=== PATIENT | female | born 1965 | race Caucasian/White ===

== ENCOUNTER → 2016-05-20 | Outpatient (CLI) | payer OTHER ==
[~2016-05-20] MED LIST: ACET-1256 PO; CHOL2000 PO; CYCL10TA6 PO; ESCI10TA17 PO; IBUP-1428 PO; LORA-741 PO; RIZA10TA19 PO; TOPI100T20 PO
--- NOTE | 2016-05-20 16:18 | MAMMOGRAPHY REPORT ---
BILATERAL DIGITAL SCREENING MAMMOGRAM TOMOSYNTHESIS WITH CAD: 05/20/2016 CLINICAL HISTORY: Routine screening. Patient has no complaints. TECHNIQUE: Breast tomosynthesis in addition to standard 2D mammography was performed. Current study was also evaluated with a Computer Aided Detection (CAD) system. COMPARISON: Comparison is made to exams dated: 12/05/2013 mammogram, 04/09/2015 mammogram, 12/01/2012 mammogram, 11/19/2011 mammogram, 11/12/2010 mammogram, and 11/05/2009 mammogram - [facility]. BREAST COMPOSITION: There are scattered areas of fibroglandular density in both breasts. FINDINGS: There is a regional asymmetry in the upper outer quadrant of the right breast, that appear s similar on all available prior mammograms dating back to at least 08/18/2006, most likely represen ting the patient's baseline. There is architectural distortion within the asymmetry on the right ML O view, likely representing an area of prior surgery. This appearance is also similar on all availa ble prior mammograms. No suspicious mass, unexpected architectural distortion or cluster of microca lcifications is seen. IMPRESSION: ACR BI-RADS CATEGORY 1: NEGATIVE There is no mammographic evidence of malignancy. A 1 year screening mammogram is recommended. The p atient will receive written notification of the results. Approximately 10% of breast cancers are not detected with mammography. A negative mammographic repor t should not delay biopsy if a clinically suggestive mass is present. Chela Crawford M.D. ay/:05/20/2016 16:02:25 Route Sales Associate: Myrna STEWART(Pierce)(Neil), [facility] letter sent: Normal 1/2 BI-RADS Code: ACR BI-RADS Category 1: Negative
== END | disposition home or self-care (01) ==
LOC: C.MAMM 14:36
PROVIDERS: ATTEND Family Medicine
DX: Z12.31 Encounter for screening mammogram for malignant neoplasm of breast (principal)

== ENCOUNTER → 2016-09-23 | Outpatient (CLI) | payer OTHER ==
--- NOTE | 2016-09-23 11:55 | DIAGNOSTIC IMAGING REPORT ---
LEFT SHOULDER MIN 2 VIEWS ROUTINE CLINICAL HISTORY: Left shoulder pain. COMPARISON: None FINDINGS: Alignment of left shoulder is anatomic. There is moderate AC joint arthrosis and mild glenohumeral joint arthrosis. There is no fracture or suspicious lesion. IMPRESSION: 1. Moderate osteoarthritis of the left acromioclavicular joint and mild arthritis of the left glenohumeral joint. 2. No fracture. Electronically signed by: Seth Paez M.D. 09/23/2016 11:54 AM Dictated Date/Time: 09/23/2016 11:53 AM
== END | disposition home or self-care (01) ==
LOC: C.RADBC 11:41
PROVIDERS: ATTEND Physician Assistant Medical
DX: M25.512 Pain in left shoulder (principal)

== ENCOUNTER → 2016-10-24 | Outpatient (CLI) | payer OTHER ==
--- NOTE | 2016-10-24 09:18 | DIAGNOSTIC IMAGING REPORT ---
LEFT SHOULDER MRI HISTORY: LEFT SHOULDER PAIN TECHNIQUE: Multiplanar multisequence MRI of the left shoulder was performed without contrast. COMPARISON STUDY: Left shoulder 09/23/2016. FINDINGS: AC joint: Moderate AC joint arthrosis demonstrated by joint space narrowing, small marginal osteophytes, and mild subchondral edema. Rotator cuff: The subscapularis, teres minor, and infraspinatus tendons are intact. No fluid within the subacromial/subdeltoid bursa. There is a small partial tear along the undersurface of the supraspinatus tendon which measures 5 mm in length. There is also mild increased T2 signal within the mid to distal supraspinatus tendon consistent with a mild tendinopathy. Labrum: Question of increased signal at the base of superior labrum favors cartilage undercutting. No definite evidence for labral tear. Biceps tendon: Intact Bones: No fracture or dislocation. Cartilage: Intact Miscellaneous: No joint effusion. IMPRESSION: 1. Small partial undersurface tear at the mid supraspinatus tendon with associated mild tendinopathy. 2. Moderate AC joint osteoarthritis. Electronically signed by: Kwame Marroquin M.D. 10/24/2016 9:17 AM Dictated Date/Time: 10/24/2016 9:11 AM
== END | disposition home or self-care (01) ==
LOC: C.MRIBC 08:31
PROVIDERS: ATTEND Orthopaedic Surgery
DX: M25.512 Pain in left shoulder (principal)

== ENCOUNTER → 2016-10-27 | Outpatient (CLI) | payer OTHER ==
[2016-10-27 12:08] LABS: BASO % 0.4 %; BASO ABS # 0.04 K/uL (0-0.2); COMPLETE YES; EOS % 2.4 %; HEMATOCRIT 42.8 % (37-47); IG% 0.2 %; LYMPH % 26.4 %; LYMPH ABS # 2.43 K/uL (1.2-3.4); MEAN CELL VOLUME 94.7 fL (80-100); MEAN CORPUSCULAR HEMOGLOBIN 32.1 pg (25-34); MEAN CORPUSCULAR HGB CONC 33.9 g/dl (32-36); MEAN PLATELET VOLUME 11.3 fL (7.4-10.4); MONO % 7.3 %; NEUT % 63.3 %; PLATELET COUNT 232 K/uL (130-400); RED BLOOD COUNT 4.52 M/uL (4.2-5.4); WHITE BLOOD COUNT 9.22 K/uL (4.8-10.8)
[2016-10-27 12:49] LABS: BLOOD UREA NITROGEN 15 mg/dl (7-18); BUN/CREATININE RATIO 24.2 (10-20); CALCIUM 8.9 mg/dl (8.5-10.1); CARBON DIOXIDE 21 mmol/L (21-32); CHLORIDE 114 mmol/L (98-107); CREATININE 0.64 mg/dl (0.60-1.20); GLUCOSE 75 mg/dl (70-99); POTASSIUM 3.4 mmol/L (3.5-5.1); SODIUM 143 mmol/L (136-145)
== END | disposition home or self-care (01) ==
LOC: C.CPL 10:44
PROVIDERS: ATTEND Orthopaedic Surgery
DX: Z01.818 Encounter for other preprocedural examination (principal); M75.02 Adhesive capsulitis of left shoulder

== ENCOUNTER → 2016-11-20 | Day surgery (SDC) | payer OTHER ==
[2016-10-31 08:28] VITALS: BMI 23.0
[2016-10-31 08:36] VITALS: Ht 157.5 cm; Wt 58.0 kg
[~2016-11-20] VITALS: Ht 157.5 cm; Wt 58.0 kg
[~2016-11-20] MED LIST changes: +ATROPINE SULFATE 0.1 MG/ML 5ML SYR IV PRN; +BUPIVACAINE/EPINEPHRINE 0.25% 1:200,000 30 ML VIAL ONE; +CEFAZOLIN 2000 MG/60 ML D5W IV SCH; +DEXAMETHASONE SOD INJ 4 MG/ML VIAL ONE; +EpHEDrine SULFATE INJ 50 MG/ML AMP IV PRN; +EpINEphrine INJ 1MG/ML AMP 1 MG/ML AMP ONE; +FENTANYL CITRATE INJ 50 MCG/1 ML 2 ML VIAL IV PRN; +FENTANYL CITRATE INJ 50 MCG/1 ML 2 ML VIAL ONE; +HYDROmorphone INJ 1 MG/ML SYR IV PRN; +LACTATED RINGER'S 1000ML 1,000 ML IV SCH; +LIDOCAINE HCL 2% 2 ML VIAL (20MG/ML) ONE; +METHYLPREDNISOLONE ACETATE 80 MG/ML VIAL ONE; +MIDAZOLAM HCL 1 MG/ML 2ML VIAL ONE; +ONDANSETRON INJ 2 MG/ML 2 ML VIAL IV PRN; +ONDANSETRON INJ 2 MG/ML 2 ML VIAL ONE; +OXYCODONE/ACETAMINOPHEN 5-325 TAB PO PRN; +PROPOFOL IV EMULSION 10 MG/ML 20 ML VIAL IV ONE; +ROPIVACAINE 0.5% 5 MG/ML 30 ML VIAL ONE; +SODIUM CHLORIDE 0.9% 1000ML 1,000 ML IV SCH
--- NOTE | 2016-11-20 09:54 | History & Physical Bridge - SC ---
H&P Re-Evaluation Bridge Note: I have examined the patient, reviewed the History & Physical and in the interval since the performance of the History & Physical I have noted the following changes of clinical significance: No changes noted
--- NOTE | 2016-11-20 10:55 | Discharge Instructions-SurgCtr ---
Discharge Instructions Date of Service Nov 20, 2016. Visit Reason for Visit: Left Shoulder Adhesive Capsulitis, Pain Discharge Discharge Diagnosis / Problem: SAME ABOVE Discharge Goals Goal(s): Decrease discomfort, Improve function Medications Stopped Medications Name(s): Ibuprofen. Last dose 11/16/16. Activity Recommendations Activity Limitations: as noted below Lifting Limitations: gradually increase as tolerated Exercise/Sports Limitations: gradually increase as tolerated Shower/Bathe: tomorrow Anesthesia . Post Anesthesia Instructions: If you have had General Anesthesia or IV Sedation: * Do not drive today. * Resume driving when surgeon permits. * Do not make important decisions or sign legal documents today. * Call surgeon for: 1. Temperature elevations greater than 101 degrees F. 2. Uncontrollable pain. 3. Excessive bleeding. 4. Persistent nausea and vomiting. 5. Medication intolerance (nausea, vomiting or rash). * For nausea and vomiting use only clear liquids such as: tea, soda, bouillon until nausea subsides, then gradually increase diet as tolerated. * If you have any concerns or questions, call your surgeon's office. If physician is unavailable and it is an emergency, call 911 or go to the nearest emergency room. . Instructions / Follow-Up Instructions / Follow-Up MEDICATIONS: * Resume previous medications unless instructed otherwise by your surgeon. * Always take pain medication on a full stomach or with food to avoid upset stomach. * Do not drink alcohol or drive while taking narcotics. * Ibuprofen or Tylenol may be taken if narcotic not needed. SPECIAL CARE INSTRUCTIONS: __ None _X_ Keep extremity elevated and iced x 48 hours; apply ice 20-30 minutes 8-10 times/day. May remove at night. _X_ Sling __24 hrs/day __ Remove at night __ Shoulder Immobilizer __ 24 hrs/day __ Remove at night _X_ Dressing __ Maintain until seen in office, may shower with plastic over site _X_ Remove dressings in 24-48 hours and then may shower _X_ Cover incisions with band-aids after showering __ Do not remove steri-strips WEAR SLING FOR 24-48 HOURS FOR COMFORT THEN REMOVE Call physician if chills or temperature rises above 102 degrees or pain unrelieved by prescribed pain medications at . . Diet Recommendations Home Diet: resume previous diet Procedures Procedures Performed: Left Shoulder Arthroscopic Capsular Release Pending Studies Studies pending at discharge: no Medical Emergencies . Who to Call and When: Medical Emergencies: If at any time you feel your situation is an emergency, please call 911 immediately. . Non-Emergent Contact Non-Emergency issues call your: Primary Care Provider . . "Provider Documentation" section prepared by Omid Wayne. .
[2016-11-20 11:44] VITALS: TEMP 36.2
--- NOTE | 2016-11-20 12:04 | Anesthesia Progress Nt - [facility] ---
Anesthesia Post Op Note Date & Time Nov 20, 2016 at 12:04 Vital Signs Pain Intensity: 0 Vital Signs Past 12 Hours Date Time Temp Pulse Resp B/P (MAP) Pulse Ox O2 Delivery O2 Flow Rate FiO2 11/20/16 11:44 36.2 65 162/83 (109) 99 Room Air 11/20/16 11:31 134/90 11/20/16 11:31 36.2 76 18 134/90 99 Room Air 11/20/16 11:29 78 19 100 11/20/16 11:29 80 19 11/20/16 11:26 133/81 11/20/16 11:24 83 18 99 11/20/16 11:24 81 18 11/20/16 11:21 119/80 11/20/16 11:19 73 14 11/20/16 11:19 73 14 100 11/20/16 11:16 141/86 11/20/16 11:14 72 14 11/20/16 11:14 72 14 100 11/20/16 11:11 145/82 11/20/16 11:09 72 14 11/20/16 11:09 72 14 100 11/20/16 11:06 129/76 11/20/16 11:04 74 13 100 11/20/16 11:04 72 13 11/20/16 11:01 130/75 11/20/16 10:59 73 13 100 11/20/16 10:59 73 13 11/20/16 10:56 127/75 11/20/16 10:54 74 21 11/20/16 10:54 76 21 100 11/20/16 10:51 119/74 11/20/16 10:50 36.1 70 12 114/74 99 Mask 6 11/20/16 09:58 74 21 100 11/20/16 09:58 74 21 11/20/16 09:56 124/79 11/20/16 09:53 74 17 100 11/20/16 09:53 74 17 11/20/16 09:51 119/80 11/20/16 09:48 64 23 100 11/20/16 09:48 65 23 11/20/16 09:47 67 25 100 11/20/16 09:47 67 25 11/20/16 09:46 139/89 11/20/16 09:42 70 21 99 11/20/16 09:42 70 21 11/20/16 09:41 131/83 11/20/16 09:40 117/83 11/20/16 09:37 60 17 97 11/20/16 09:37 61 17 11/20/16 09:36 75 15 97 11/20/16 09:36 72 15 11/20/16 09:31 60 18 97 11/20/16 09:31 60 18 11/20/16 09:26 70 21 11/20/16 09:26 69 21 96 11/20/16 09:21 69 19 96 11/20/16 09:21 68 19 11/20/16 09:16 77 16 96 11/20/16 09:16 75 16 11/20/16 09:11 71 20 11/20/16 09:11 71 20 96 11/20/16 09:06 69 16 11/20/16 09:06 68 16 96 11/20/16 07:46 36.5 66 16 117/73 (88) 97 Room Air Notes Mental Status: alert / awake / arousable, participated in evaluation Pt Amnestic to Procedure: Yes Nausea / Vomiting: adequately controlled Pain: adequately controlled Airway Patency, RR, SpO2: stable & adequate BP & HR: stable & adequate Hydration State: stable & adequate Anesthetic Complications: no major complications apparent
[2016-11-20 12:11] VITALS: BP 147/78; PULSE 68; O2SAT 98
--- NOTE | 2016-11-20 14:34 | [facility] Post Operative Brief Note ---
Immediate Operative Summary Operative Date Nov 20, 2016. Pre-Operative Diagnosis Left Shoulder Adhesive Capsulitis Post-Operative Diagnosis Same Procedure(s) Performed Left Shoulder Arthroscopic Capsular Release Surgeon Dr Kwan Acid Plant Helper Surgeon(s) None Estimated Blood Loss Trace Findings as above Specimens None Complication(s) None Disposition Recovery Room / PACU
--- NOTE | 2016-11-20 15:13 | OPERATIVE REPORT ---
DATE OF OPERATION: 11/20/2016 PREOPERATIVE DIAGNOSIS: Adhesive capsulitis of the left shoulder. POSTOPERATIVE DIAGNOSIS: Same. PROCEDURE: Left shoulder diagnostic arthroscopy with extensive debridement, lysis of adhesions and manipulation under anesthesia. SURGEON: Dr. Omid Kwan. MICROFILMING DOCUMENT PREPARER: Omid Wayne PA-C whose assistance was necessary for positioning the arm and helping with instrumentation. ANESTHESIA: General with a left interscalene nerve block. COMPLICATIONS: None. CONDITION: Stable to PACU. INDICATIONS: Cat is a pleasant 51-year-old female who presented to my office with chronic left shoulder pain and tightness. MRI and clinical examination were diagnostic for adhesive capsulitis of the left shoulder. After failing conservative treatment, she elected to undergo arthroscopic capsular release. OPERATION AND FINDINGS: On 11/20/2016 she arrived at [facility] for the above procedure. She was seen in the preoperative holding area and the operative extremity was identified and signed. She was given a preoperative antibiotic and a left interscalene nerve block. She was taken back to the operating room, laid on the table in supine position and put under general anesthesia. She was then put into the beachchair position. The left shoulder was prepped and draped in sterile fashion. Time-out was done and the patient and operative extremity was properly identified. On preoperative physical examination, she had about 70 degrees of abduction and 40 degrees of external rotation. A gentle manipulation was done under anesthesia to facilitate insertion of the scope. The scope was then placed in the posterior portal. Diagnostic arthroscopy showed significant redness and tightness of the rotator interval at middle and anterior inferior glenohumeral ligaments. An anterior portal was made. A shaver and ablator were used to do a lysis of adhesions of the superior, middle and anterior inferior glenohumeral ligaments. A shaver was used to do an extensive debridement of the intraarticular structures and to completely debride the edges of the ligaments back to stable margins. This is to ensure that they do not readhere. Time out also spent completely opening up the rotator interval and cleaning up the subcoracoid space. Hemostasis was controlled with electrocautery. The rotator cuff was intact and the biceps tendon was intact. Arthroscopic instruments were removed from the shoulder. Final manipulation was done under anesthesia. I was able to get full range of motion of her shoulder. The portal sites were then closed with 3-0 nylon. The intra-articular joint was then injected with 80 mg of Depo-Medrol. She was then placed in a soft dressing and regular arm sling. She was then extubated, transferred to a [facility] and taken to the postanesthesia care unit in stable condition. She tolerated the procedure well. I attest to the content of the Intraoperative Record and any orders documented therein. Any exception s are noted below.
== END | disposition home or self-care (01) ==
LOC: X.SURG 07:36
PROVIDERS: ATTEND Orthopaedic Surgery
DX: M75.02 Adhesive capsulitis of left shoulder (principal); F32.9 Major depressive disorder, single episode, unspecified; I73.9 Peripheral vascular disease, unspecified; I71.4 Abdominal aortic aneurysm, without rupture; Z90.49 Acquired absence of other specified parts of digestive tract

== ENCOUNTER → 2017-06-22 | Outpatient (CLI) | payer OTHER ==
[~2017-06-22] MED LIST changes: -ATROPINE SULFATE 0.1 MG/ML 5ML SYR IV PRN; -BUPIVACAINE/EPINEPHRINE 0.25% 1:200,000 30 ML VIAL ONE; -CEFAZOLIN 2000 MG/60 ML D5W IV SCH; -DEXAMETHASONE SOD INJ 4 MG/ML VIAL ONE; -EpHEDrine SULFATE INJ 50 MG/ML AMP IV PRN; -EpINEphrine INJ 1MG/ML AMP 1 MG/ML AMP ONE; -FENTANYL CITRATE INJ 50 MCG/1 ML 2 ML VIAL IV PRN; -FENTANYL CITRATE INJ 50 MCG/1 ML 2 ML VIAL ONE; -HYDROmorphone INJ 1 MG/ML SYR IV PRN; -LACTATED RINGER'S 1000ML 1,000 ML IV SCH; -LIDOCAINE HCL 2% 2 ML VIAL (20MG/ML) ONE; -METHYLPREDNISOLONE ACETATE 80 MG/ML VIAL ONE; -MIDAZOLAM HCL 1 MG/ML 2ML VIAL ONE; -ONDANSETRON INJ 2 MG/ML 2 ML VIAL IV PRN; -ONDANSETRON INJ 2 MG/ML 2 ML VIAL ONE; -OXYCODONE/ACETAMINOPHEN 5-325 TAB PO PRN; -PROPOFOL IV EMULSION 10 MG/ML 20 ML VIAL IV ONE; -ROPIVACAINE 0.5% 5 MG/ML 30 ML VIAL ONE; -SODIUM CHLORIDE 0.9% 1000ML 1,000 ML IV SCH
[2017-06-22 11:57] LABS: BASO % 0.5 %; BASO ABS # 0.05 K/uL (0-0.2); EOS % 1.6 %; EOS ABS # 0.17 K/uL (0-0.5); HEMATOCRIT 38.5 % (37-47); IG# 0.02 K/uL (0.00-0.02); LYMPH % 22.5 %; LYMPH ABS # 2.35 K/uL (1.2-3.4); MEAN CELL VOLUME 95.5 fL (80-100); MEAN CORPUSCULAR HEMOGLOBIN 32.3 pg (25-34); MEAN CORPUSCULAR HGB CONC 33.8 g/dl (32-36); MEAN PLATELET VOLUME 11.3 fL (7.4-10.4); MONO % 7.9 %; MONO ABS # 0.83 K/uL (0.11-0.59); NEUT % 67.3 %; NEUT ABS # 7.03 K/uL (1.4-6.5); PLATELET COUNT 225 K/uL (130-400); RED CELL DISTRIBUTION WIDTH CV 13.1 % (11.5-14.5); RED CELL DISTRIBUTION WIDTH SD 45.8 fL (36.4-46.3); WHITE BLOOD COUNT 10.45 K/uL (4.8-10.8)
[2017-06-22 12:10] LABS: ALBUMIN 3.4 gm/dl (3.4-5.0); ALT/SGPT 36 U/L (12-78); AST/SGOT 35 U/L (15-37); BLOOD UREA NITROGEN 12 mg/dl (7-18); CALCIUM 8.5 mg/dl (8.5-10.1); CARBON DIOXIDE 22 mmol/L (21-32); CHOLESTEROL 213 mg/dl (0-200); CREATININE 0.67 mg/dl (0.60-1.20); GLUCOSE 78 mg/dl (70-99); POTASSIUM 3.2 mmol/L (3.5-5.1); SODIUM 143 mmol/L (136-145)
[2017-06-22 12:18] LABS: ALKALINE PHOSPHATASE 95 U/L (45-117); LDL CHOLESTEROL (DIRECT) 146 mg/dl; PHOSPHORUS 2.7 mg/dl (2.5-4.9); TOTAL PROTEIN 7.2 gm/dl (6.4-8.2)
== END | disposition home or self-care (01) ==
LOC: C.LAB1850 10:02
PROVIDERS: ATTEND Family Medicine
DX: E78.2 Mixed hyperlipidemia (principal); R60.9 Edema, unspecified

== ENCOUNTER → 2017-06-22 | Outpatient (CLI) | payer OTHER ==
--- NOTE | 2017-06-23 07:55 | MAMMOGRAPHY REPORT ---
BILATERAL DIGITAL SCREENING MAMMOGRAM TOMOSYNTHESIS WITH CAD: 06/22/2017 CLINICAL HISTORY: Routine screening. Patient has no complaints. TECHNIQUE: Breast tomosynthesis in addition to standard 2D mammography was performed. Current study was also evaluated with a Computer Aided Detection (CAD) system. COMPARISON: Comparison is made to exams dated: 05/20/2016 mammogram, 04/09/2015 mammogram, 12/05/2013 mammogram, 12/01/2012 mammogram, 11/19/2011 mammogram, and 11/12/2010 mammogram - [facility] enter. BREAST COMPOSITION: There are scattered areas of fibroglandular density in both breasts. FINDINGS: There is is evidence of prior surgery in the right breast, and stable focal asymmetry vers us regional asymmetry occupying the upper outer middle and posterior right breast. There are possibl e grouped microcalcifications in the upper outer middle one third of the left breast, for which addit ional spot magnification views are recommended. 2 possible subcentimeter masses in the upper outer a nterior left breast, for which additional targeted ultrasound and possible additional mammographic vi ews are recommended. No other suspicious mass, architectural distortion or cluster of microcalcifications is seen. IMPRESSION: ACR BI-RADS CATEGORY 0: INCOMPLETE EVALUATION: NEED ADDITIONAL IMAGING EVALUATION The 2 possible subcentimeter masses in the upper outer anterior left breast and possible microcalcifi cations in the left upper outer quadrant need additional imaging evaluation. The patient will be called to schedule an appointment. Approximately 10% of breast cancers are not detected with mammography. A negative mammographic report should not delay biopsy if a clinically suggestive mass is present. Chela Crawford M.D. ay/:06/22/2017 16:49:49 Security Trainer: Laure STEWART(Pierce)(Neil), [facility] letter sent: Addl Imaging 0 BI-RADS Code: ACR BI-RADS Category 0: Incomplete Evaluation: Need Additional Imaging Evaluation
== END | disposition home or self-care (01) ==
LOC: C.MAMM 09:43
PROVIDERS: ATTEND Family Medicine
DX: Z12.31 Encounter for screening mammogram for malignant neoplasm of breast (principal); R92.8 Other abnormal and inconclusive findings on diagnostic imaging of breast

== ENCOUNTER → 2017-06-29 | Outpatient (CLI) | payer OTHER ==
--- NOTE | 2017-06-29 15:42 | MAMMOGRAPHY REPORT ---
UNILATERAL LEFT DIGITAL DIAGNOSTIC MAMMOGRAM AND TARGETED LEFT ULTRASOUND: 06/29/2017 CLINICAL HISTORY: 52-year-old woman called back from screening mammography for 2 possible subcentimet er masses in the upper outer anterior left breast, and possible microcalcifications in the upper oute r middle one third of the left breast. Family history of breast cancer. TECHNIQUE: Spot magnification left CC and MLO views were obtained. COMPARISON: Comparison is made to exams dated: 06/22/2017 mammogram, 05/20/2016 mammogram, 04/09/2015 mammogram, 12/05/2013 mammogram, 12/01/2012 mammogram, and 11/19/2011 mammogram - [facility] enter. BREAST COMPOSITION: There are scattered areas of fibroglandular density in the left breast. FINDINGS: The spot magnification views of the left breast demonstrate 2-3 punctate microcalcificatio ns in the upper outer middle one third of the breast. No associated architectural distortion or obvi ous mass. When comparing to prior available mammograms the microcalcifications are increased in cons picuity. Although they most likely represent benign fibrocystic change, a short interval follow-up i s recommended to ensure stability in 6 months. Targeted ultrasound was performed in the upper outer anterior left breast. In the 12:00 periareolar left breast, there is a benign anechoic simple cyst measuring 5.4 x 4.8 x 5.2 mm. In the 1:00 periar eolar left breast, there is a parallel lobulated and circumscribed isoechoic solid-appearing mass dani suring 8.8 x 3.2 x 5.8 mm. Although this could represent a benign fibroadenoma, given the solid natu re, definitive characterization with an ultrasound-guided core needle biopsy is recommended. IMPRESSION: ACR BI-RADS CATEGORY 4: SUSPICIOUS, TARGETED ULTRASOUND ACR BI-RADS CATEGORY 4: SUSPICIO US 1. Left breast ultrasound-guided core biopsy is recommended for an indeterminate solid 8.8 mm mass in the 1:00 periareolar left breast. 2. A second possible mass in the upper outer anterior left breast corresponds to a benign anechoic s imple cyst on ultrasound, identified in the 12:00 periareolar axis. 3. There are 2-3 punctate microcalcifications in the upper outer middle one third of the left breast that are probably benign. However, given slight increased conspicuity to prior mammograms, a short interval follow-up left diagnostic mammogram including spot magnification views is recommended in 6 m [facility], pending benign pathology results from the left breast ultrasound-guided core biopsy. These results and recommendations were discussed with the patient at the time of the exam. She is te ntatively scheduled the left breast biopsy prior to leaving the department. Approximately 10% of breast cancers are not detected with mammography. A negative mammographic report should not delay biopsy if a clinically suggestive mass is present. Chela Crawford M.D. ay/:06/29/2017 09:16:01 Client Solutions Manager: Sanjay STEWART(R)(M), [facility] letter sent: Abnormal 4/5 BI-RADS Code: ACR BI-RADS Category 4: Suspicious Ultrasound BI-RADS: ACR BI-RADS Category 4: Suspici ous
== END | disposition home or self-care (01) ==
LOC: C.MAMM 08:44
PROVIDERS: ATTEND Family Medicine
DX: C50.912 Malignant neoplasm of unspecified site of left female breast (principal); N63.20 Unspecified lump in the left breast, unspecified quadrant; R92.0 Mammographic microcalcification found on diagnostic imaging of breast

== ENCOUNTER → 2017-07-10 | Outpatient (CLI) | payer OTHER ==
--- NOTE | 2017-07-13 13:56 | MAMMOGRAPHY REPORT ---
ASPIRATION LEFT BREAST: 07/10/2017 CLINICAL HISTORY: Left 1:00 periareolar breast mass. PATIENT CONSENT: The procedure and risks of ultrasound-guided cyst biopsy/aspiration were discussed i n full with the patient. Both oral and written consents were obtained. PROCEDURE DESCRIPTION: Preprocedural ultrasound demonstrate a persistent mass in the left 1:00 periar eolar breast. The mass is predominantly isoechoic but does have an anechoic cystic component. Given that the mass could represent a complicated cyst, the decision was made to attempt aspiration prior to biopsy. With ultrasound guidance, aseptic technique, and 1% lidocaine as a local anesthetic, the mass of concern in the left 1:00 periareolar breast was aspirated to completion. A small amount of b enign type of cloudy yellow/pink fluid was aspirated and sent to cytology in [facility] for analysis. D irect pressure was applied to the site immediately post procedure and hemostasis was achieved. The p atient tolerated the procedure without complication. COMPARISON: Comparison is made to exams dated: 06/29/2017 mammogram, 06/29/2017 ultrasound, 06/22/2017 ma mmogram, 05/20/2016 mammogram, 04/09/2015 mammogram, and 12/05/2013 mammogram - [facility] enter. IMPRESSION: ASPIRATION 1. Successful ultrasound-guided aspiration of the mass in the left 1:00 periareolar breast. Given t hat the mass completely aspirated, it is consistent with a cyst. [facility]. 2. Pending benign cytology results, recommend follow-up diagnostic mammograms of the left breast in 6 months to confirm stability of left breast calcifications that are probably benign. Shante Rice M.D. ah/:07/10/2017 13:42:31 Community Development Planner: Laure STEWART(Pierce)(M), [facility]
== END | disposition home or self-care (01) ==
LOC: C.MAMM 12:32
PROVIDERS: ATTEND Family Medicine
DX: N60.02 Solitary cyst of left breast (principal)

== ENCOUNTER 2023-07-22 10:44 | Inpatient (IN) ==
[2023-07-22 11:32] LABS: POC Urine Bilirubin Negative (Negative); POC Urine Blood Negative (Negative); POC Urine Glucose Normal (Normal); POC Urine Ketones Negative (Negative); POC Urine Leukocytes Negative (Negative); POC Urine Nitrite Negative (Negative); POC Urine Protein Negative (Negative); POC Urine Urobilinogen Normal (Normal); POC Urine pH 5 (4.5-7.5)
[2023-07-22 11:48] LABS: Basophils # (auto) 0.06 K/uL (0.00-0.20); Basophils % (auto) 0.6 %; Eosinophils # (auto) 0.16 K/uL (0.00-0.50); Eosinophils % (auto) 1.5 %; Hemoglobin 15.2 g/dl (12.0-16.0); Immature Granulocytes # (auto) 0.04 K/uL (0.01-0.20); Immature Granulocytes % (auto) 0.4 %; Lymphocytes # (auto) 2.74 K/uL (1.20-3.40); Mean Corpuscular Hemoglobin 31.4 pg (25.0-34.0); Monocytes # (auto) 0.68 K/uL (0.11-0.59); Monocytes % (auto) 6.4 %; Neutrophils # (auto) 6.87 K/uL (1.40-6.50); Neutrophils % (auto) 65.1 %; Platelet Count 258 K/uL (130-400); RDW Coefficient of Variation 12.3 % (11.5-14.5); RDW Standard Deviation 42.8 fL (36.4-46.3); Red Blood Count 4.84 M/uL (4.20-5.40); White Blood Count 10.55 K/ul (4.8-10.8)
[2023-07-22 11:58] LABS: Appearance Urine Clear (Clear); Bilirubin Urine Negative (Negative); Blood Urine Negative (Negative); Color Urine Yellow; Glucose Urine UA Negative (Negative); Ketones Urine Negative (Negative); Leukocyte Esterase Urine Negative (Negative); Nitrite Urine Negative (Negative); Protein Urine Negative (Negative); Specific Gravity Urine 1.006 (1.000-1.030); Urobilinogen Urine Negative (Negative)
[2023-07-22 12:04] LABS: Albumin Globulin Ratio 1.3 (0.9-2); Albumin Level 4.7 gm/dl (3.4-5.0); BUN Creatinine Ratio 14.1 (10-20); Bilirubin,Total 0.8 mg/dl (0.2-1.0); Calcium 10.1 mg/dl (8.6-10.3); Creatinine Clr Calc Pharmacy 72.1 ml/min; Est GFR (African American) 97.1 ml/min; Est GFR (Non-African American) 83.8 ml/min; Globulin 3.7 gm/dl (2.5-4.0); Potassium 3.8 mmol/L (3.5-5.1); Total Protein 8.4 gm/dl (6.0-8.3)
[2023-07-22] MEDS: OPTIRAY 350 500ml IV ONE (12:52)
--- NOTE | 2023-07-22 12:52 | Emergency Department Note ---
Impression & Plan Low back pain, Urinary incontinence ED Provider Note NAME: SHAWN ARRIAGA AGE: 58 SEX: F : 1965 ARRIVES VIA: Walk-In INFORMANT: Patient, ED PROVIDER(S): Jovana Aranda MD CHIEF COMPLAINT: Back pain HPI: This is a 58-year-old female with history of cervical radiculopathy, cervical spinal stenosis, migraines presenting for lower back pain. 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 She notes that she did not have any immediate pain or any real issue. However later that night she went having slight low back pain. This progressively worsened over the past few days however she is now unable to stand due to the pain. She notes she can get up and walk for the most part but 1 golfs and is standing having difficulty. She also notes new incontinence, urinary. This never happened before. When she is walking specifically she notes that she is unable to tell when she is urinating. She has no saddle anesthesia. No fevers or chills. She does mention family history of aortic aneurysm in her mother. ROS: See above HPI for pertinent positives & negatives. A total of 10 systems reviewed and were otherwise negative. PAST MEDICAL HISTORY: See Below PAST SURGICAL HISTORY: See Below FAMILY HISTORY: See Below SOCIAL HISTORY: See Below HOME MEDICATIONS: See Below ALLERGIES: See Below VITALS: See Below PHYSICAL EXAMINATION: General: resting comfortably in no acute distress Head: Normocephalic and atraumatic Eyes: Normal inspection, extraocular muscles intact Ear, nose, throat: Normal external exam Neck: Normal range of motion Respiratory: lungs clear to auscultation bilaterally Cardiovascular: Regular rate/rhythm, no murmur GI: soft, nontender, no guarding or rebound Extremities: nontender, moves all extremities Neuro: The patient awake and alert, appropriately conversive, no focal deficits, symmetric faces, strength 4/5 in bilateral lower extremities, preserved 5-5 in upper extremities Skin: Warm, dry, and intact MEDICAL DECISION MAKING: This is a 58-year-old female presenting for lower back pain. Concern for musculoskeletal lower back pain versus cauda equina versus aneurysm versus dissection. -Lab work is largely unrevealing of acute etiology today. -Negative urinalysis -CT of the abdomen/pelvis not reveal acute dissection or other intra-abdominal pathology -Patient notes some return of pain, will continue to give pain medication however patient require MRI ultimately to rule out cauda equina -Discussed with Dr. Harris, orthospine surgeon who recommends admission, MRI and he will see the patient pending MRI Differential diagnosis: See above ER treatment provided: See below Diagnostics interpreted by me: ECG: None Cardiac Monitoring: An order was placed for continuous cardiac monitoring. The monitor shows a rate of 58 with sinus rhythm. Laboratory studies: As stated above and show below. Imaging studies: See below. Past Med/Surg History Medical History (Updated 07/22/23 @ 18:38 by Jovana Aranda MD) Cervical radiculopathy Common migraine without aura Depression with anxiety Migraine with typical aura Mixed hyperlipidemia Surgical History No history of previous surgery Family History Mother Unknown family medical history Social History Smoking Status: Current every day smoker Tobacco Type: Cigarettes Preferred Language: Nauruan Visual Impairment: No Limitations Hearing Ability: Normal Beliefs That Will Affect Care: None Current Living Situation: Family current occupational status: employed Feels Safe at Home: Yes Allergies Allergies Allergy/AdvReac Type Severity Reaction Status Date / Time No Known Allergies Allergy Unverified 01/29/21 08:54 Home Meds Home Medications Medication Instructions Recorded Confirmed Tylenol See Rx Instructions .Route 07/22/23 07/22/23 .COMPLEX PRN pain/fever ibuprofen See Rx Instructions .Route 07/22/23 07/22/23 .COMPLEX PRN pain/fever Results & Data (ED) Vital Signs Vital Signs - 24 hr 07/22/23 10:52 07/22/23 12:59 07/22/23 13:00 Temperature 36.6 C Temperature Source Temporal Artery Scan Pulse Rate 71 69 Pulse Rate from SpO2 Sensor 71 Respiratory Rate 18 19 Blood Pressure 165/77 H 144/73 H Blood Pressure Mean 106 117 Pulse Oximetry 98 97 Sepsis Recent Fever Within 48 Hours No Sepsis New/Unexplained Change in Mental Status N/A Sepsis Action Taken by Nursing No Action Required 07/22/23 13:00 07/22/23 13:03 07/22/23 13:10 Temperature Temperature Source Pulse Rate 74 71 73 Pulse Rate from SpO2 Sensor 74 73 Respiratory Rate 17 Blood Pressure Blood Pressure Mean Pulse Oximetry 99 96 Sepsis Recent Fever Within 48 Hours Sepsis New/Unexplained Change in Mental Status Sepsis Action Taken by Nursing 07/22/23 13:20 07/22/23 13:30 07/22/23 13:40 Temperature Temperature Source Pulse Rate 68 Pulse Rate from SpO2 Sensor 69 70 74 Respiratory Rate 14 Blood Pressure Blood Pressure Mean Pulse Oximetry 97 99 94 Sepsis Recent Fever Within 48 Hours Sepsis New/Unexplained Change in Mental Status Sepsis Action Taken by Nursing 07/22/23 13:50 07/22/23 14:00 07/22/23 14:01 Temperature Temperature Source Pulse Rate Pulse Rate from SpO2 Sensor 68 73 Respiratory Rate Blood Pressure 156/83 H Blood Pressure Mean 91 Pulse Oximetry 97 99 Sepsis Recent Fever Within 48 Hours Sepsis New/Unexplained Change in Mental Status Sepsis Action Taken by Nursing 07/22/23 14:01 07/22/23 14:10 07/22/23 15:00 Temperature Temperature Source Pulse Rate 66 59 L 65 Pulse Rate from SpO2 Sensor 66 58 L 63 Respiratory Rate 24 21 13 Blood Pressure 154/84 H Blood Pressure Mean 107 Pulse Oximetry 97 96 96 Sepsis Recent Fever Within 48 Hours Sepsis New/Unexplained Change in Mental Status Sepsis Action Taken by Nursing Laboratory Data 07/22/23 11:18 07/22/23 11:18 Lab Results 07/22/23 07/22/23 07/22/23 Range/Units 11:14 11:18 11:27 WBC 10.55 (4.8-10.8) K/ul RBC 4.84 (4.20-5.40) M/uL Hgb 15.2 (12.0-16.0) g/dl Hct 46.0 (37.0-47.0) % MCV 95.0 (80.0-100.0) fL MCH 31.4 (25.0-34.0) pg MCHC 33.0 (32.0-36.0) g/dL RDW Std Deviation 42.8 (36.4-46.3) fL RDW Coeff of Elvira 12.3 (11.5-14.5) % Plt Count 258 (130-400) K/uL MPV 11.0 (9.4-12.4) fL Immature Gran % (Auto) 0.4 % Neut % (Auto) 65.1 % Lymph % (Auto) 26.0 % [place] % (Auto) 6.4 % Eos % (Auto) 1.5 % Baso % (Auto) 0.6 % Neut # (Auto) 6.87 H (1.40-6.50) K/uL Lymph # (Auto) 2.74 (1.20-3.40) K/uL [place] # (Auto) 0.68 H (0.11-0.59) K/uL Eos # (Auto) 0.16 (0.00-0.50) K/uL Baso # (Auto) 0.06 (0.00-0.20) K/uL Immature Gran # (Auto) 0.04 (0.01-0.20) K/uL Sodium 135 L (136-145) mmol/L Potassium 3.8 (3.5-5.1) mmol/L Chloride 103 (98-107) mmol/L Carbon Dioxide 25 (21-32) mmol/L Anion Gap 7 (3-11) BUN 11 (6-23) mg/dl Creatinine 0.78 (0.6-1.2) mg/dl Est Cr Clr Drug Dosing 72.1 ml/min Est GFR ( Amer) 97.1 ml/min Est GFR (Non-Af Amer) 83.8 ml/min BUN/Creatinine Ratio 14.1 (10-20) Glucose 73 (70-99(Fasting)) mg/dl Calcium 10.1 (8.6-10.3) mg/dl Total Bilirubin 0.8 (0.2-1.0) mg/dl AST 34 (13-39) U/L ALT 18 (7-52) U/L Alkaline Phosphatase 104 (34-104) U/L Total Protein 8.4 H (6.0-8.3) gm/dl Albumin 4.7 (3.4-5.0) gm/dl Globulin 3.7 (2.5-4.0) gm/dl Albumin/Globulin Ratio 1.3 (0.9-2) Urine Color Yellow Urine Appearance Clear (Clear) Urine pH 6.0 (4.5-7.5) POC Urine pH 5 (4.5-7.5) Ur Specific [place] 1.006 (1.000-1.030) Urine Protein Negative (Negative) POC Urine Protein Negative (Negative) Urine Glucose (UA) Negative (Negative) POC Ur Glucose (UA) Normal (Normal) Urine Ketones Negative (Negative) POC Urine Ketones Negative (Negative) Urine Blood Negative (Negative) POC Urine Blood Negative (Negative) Urine Nitrite Negative (Negative) POC Urine Nitrite Negative (Negative) Urine Bilirubin Negative (Negative) POC Urine Bilirubin Negative (Negative) Urine Urobilinogen Negative (Negative) POC Urine Urobilinogen Normal (Normal) Ur Leukocyte Esterase Negative (Negative) POC U Leukocyte Esteras Negative (Negative) POC Ur Test NEG (NEG) Administered Medications Discontinued Medications Acetaminophen (Ofirmev) 1,000 mg in 100 mls @ 400 mls/hr IV NOW STA Stop: 07/22/23 12:59 Last Infusion: 07/22/23 13:20 Dose: Infused Documented By: Admin: 07/22/23 13:00 Dose: 400 mls/hr Documented By: KAROL Ioversol (Optiray 350 500ml) 115 ml IV ONCE ONE Stop: 07/22/23 12:53 Last Admin: 07/22/23 12:52 Dose: 115 ml Documented By: PILO Ketorolac Tromethamine (Ketorolac Tromethamine 15 Mg/Ml Vial) 15 mg IV NOW ONE Stop: 07/22/23 12:46 Last Admin: 07/22/23 12:59 Dose: 15 mg Documented By: KAROL Imaging Data Radiologist's Impression: Abdomen/Pelvis CTA 07/22/23 12:23 CT ANGIOGRAM OF THE ABDOMEN AND PELVIS COMBO CLINICAL HISTORY: Low back pain. COMPARISON STUDY: No priors. TECHNIQUE: Before and following the IV administration of 115 cc of Optiray 350, CT angiogram of the abdomen and pelvis was performed from the lung bases the proximal femora. Images are reviewed in the axial, sagittal, and coronal planes. 3-D MIPS images are created and assessed. IV contrast was administered without complication. A dose lowering technique was utilized adhering to the principles of ALARA. CT DOSE: 1526.8 mGy.cm FINDINGS: Lower chest: The heart is normal in size and without pericardial effusion. Dependent atelectasis is present at both lung bases. No airspace consolidation or pleural effusion is identified. Liver: The contrast-enhanced liver is normal in size, contour, and attenuation. There is no intrahepatic biliary ductal dilatation. The main portal veins appear patent. Gallbladder: Surgically absent noting clips in the gallbladder fossa. Spleen: Normal in size and attenuation noting heterogeneous arterial phase enhancement. Pancreas: Unremarkable. Adrenal glands: Unremarkable. Kidneys: The contrast enhanced kidneys are normal in size and without hydronephrosis. There is a 3 mm nonobstructing calculus in the lower pole of the left kidney seen on the unenhanced series. No right renal calculi are identified and there is no ureteral stone. The kidneys enhance symmetrically. Abdominal aorta and iliac arteries: The abdominal aorta is normal in course and caliber noting moderate to advanced atherosclerotic calcification. The abdominal aorta is patent. No dissection is seen. The iliac arteries are widely patent bilaterally noting advanced atherosclerotic plaque and irregularity. There is ectasia of the left internal iliac artery which measures up to 8 mm. Major branches of the abdominal aorta: The celiac trunk, superior mesenteric, and inferior mesenteric arteries are widely patent. The left gastric artery and the right hepatic artery arises directly from the abdominal aorta. There is a replaced left hepatic artery which arises from the left gastric artery. The splenic artery is patent . Single bilateral renal arteries are widely patent. Bowel: There is moderate sigmoid diverticulosis without CT evidence of acute diverticulitis. No bowel obstruction is seen. There is mild to moderate colonic fecal retention. The appendix is well-visualized and normal. Peritoneum: There is no intraperitoneal free air or abdominal ascites. There is a tiny fat-containing umbilical hernia. Lymphadenopathy: None. Pelvic viscera: The tiny foci of gas within the bladder lumen are nonspecific and may be related to instrumentation. The bladder is otherwise normal as imaged. The uterus and adnexa are normal as visualized. Surgical clips are seen in the pelvis bilaterally. Skeletal structures: There is mild lumbosacral spondylosis. Sclerotic change is noted in the sacroiliac joints. No destructive bony lesions are seen. IMPRESSION: 1. Unremarkable CT angiogram of the abdominal aorta noting advanced atherosclerotic plaque. 2. Unremarkable CT angiogram of the major branches of the abdominal aorta. 3. No acute infectious or inflammatory findings are identified in the abdomen or pelvis. 4. Left-sided nephrolithiasis. 5. Sigmoid diverticulosis without CT evidence of acute diverticulitis. 6. Tiny foci of gas within the bladder lumen are nonspecific and likely related to instrumentation. Correlate with clinical findings and urinalysis. 7. Additional findings as above. ACT 112: Negative or not required by law. Electronically signed by: Hugo Whitehead M.D. 07/22/2023 2:21 PM Discharge Plan Visit Data Chief Complaint: Referred by Doctor Stated Complaint: LOWER BACK PAIN ED Provider: Jovana Aranda Discharge Problem: Low back pain, Urinary incontinence Patient Disposition: Admitted As Inpatient Discharge Instructions Interventions: ED Discharge Assessment Last Done: 07/22/23 17:41
[2023-07-22] MEDS: KETOROLAC TROMETHAMINE 15 MG/ML VIAL IV ONE (12:59)
[2023-07-22] MEDS: ACETAMINOPHEN 1,000 MG/100 ML VIAL IV STA ×2 (13:00→23:53)
--- NOTE | 2023-07-22 14:22 | CT Scan Report ---
CT ANGIOGRAM OF THE ABDOMEN AND PELVIS COMBO CLINICAL HISTORY: Low back pain. COMPARISON STUDY: No priors. TECHNIQUE: Before and following the IV administration of 115 cc of Optiray 350, CT angiogram of the a bdomen and pelvis was performed from the lung bases the proximal femora. Images are reviewed in the a xial, sagittal, and coronal planes. 3-D MIPS images are created and assessed. IV contrast was adminis tered without complication. A dose lowering technique was utilized adhering to the principles of ALA RA. CT DOSE: 1526.8 mGy.cm FINDINGS: Lower chest: The heart is normal in size and without pericardial effusion. Dependent atelectasis is p resent at both lung bases. No airspace consolidation or pleural effusion is identified. Liver: The contrast-enhanced liver is normal in size, contour, and attenuation. There is no intrahepa tic biliary ductal dilatation. The main portal veins appear patent. Gallbladder: Surgically absent noting clips in the gallbladder fossa. Spleen: Normal in size and attenuation noting heterogeneous arterial phase enhancement. Pancreas: Unremarkable. Adrenal glands: Unremarkable. Kidneys: The contrast enhanced kidneys are normal in size and without hydronephrosis. There is a 3 mm nonobstructing calculus in the lower pole of the left kidney seen on the unenhanced series. No right renal calculi are identified and there is no ureteral stone. The kidneys enhance symmetrically. Abdominal aorta and iliac arteries: The abdominal aorta is normal in course and caliber noting modera te to advanced atherosclerotic calcification. The abdominal aorta is patent. No dissection is seen. T he iliac arteries are widely patent bilaterally noting advanced atherosclerotic plaque and irregulari ty. There is ectasia of the left internal iliac artery which measures up to 8 mm. Major branches of the abdominal aorta: The celiac trunk, superior mesenteric, and inferior mesenteric arteries are widely patent. The left gastric artery and the right hepatic artery arises directly fro m the abdominal aorta. There is a replaced left hepatic artery which arises from the left gastric art bruce. The splenic artery is patent . Single bilateral renal arteries are widely patent. Bowel: There is moderate sigmoid diverticulosis without CT evidence of acute diverticulitis. No bowel obstruction is seen. There is mild to moderate colonic fecal retention. The appendix is well-visual ized and normal. Peritoneum: There is no intraperitoneal free air or abdominal ascites. There is a tiny fat-containing umbilical hernia. Lymphadenopathy: None. Pelvic viscera: The tiny foci of gas within the bladder lumen are nonspecific and may be related to i nstrumentation. The bladder is otherwise normal as imaged. The uterus and adnexa are normal as visual ized. Surgical clips are seen in the pelvis bilaterally. Skeletal structures: There is mild lumbosacral spondylosis. Sclerotic change is noted in the sacroili ac joints. No destructive bony lesions are seen. IMPRESSION: 1. Unremarkable CT angiogram of the abdominal aorta noting advanced atherosclerotic plaque. 2. Unremarkable CT angiogram of the major branches of the abdominal aorta. 3. No acute infectious or inflammatory findings are identified in the abdomen or pelvis. 4. Left-sided nephrolithiasis. 5. Sigmoid diverticulosis without CT evidence of acute diverticulitis. 6. Tiny foci of gas within the bladder lumen are nonspecific and likely related to instrumentation. C orrelate with clinical findings and urinalysis. 7. Additional findings as above. ACT 112: Negative or not required by law. Electronically signed by: Hugo Whitehead M.D. 07/22/2023 2:21 PM
--- NOTE | 2023-07-22 15:29 | History & Physical Report ---
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 Patient has had new urinary incontinence and an inability to tell when she is voiding. Bladder scan pending to evaluate for retention Given severe back pain and new urinary incontinence concerning for potential cauda equina. Case was discussed with orthospine recommended for admission at this time, MRI of the lumbar spine is pending. No lower extremity weakness, no numbness/tingling, no saddle anesthesia on admission No infectious symptoms Patient denies other medical history and takes no prescription medications. Denies cardiac, pulmonary, and renal disease - Bladder scanned at time of admit, no retention noted (2) Tobacco abuse: Plan: 0.5 pack/day 40-year history Cessation recommended, patch offered patient declines NRT while in the hospital Plan Diet: N.p.o. pending MRI results and surgical evaluation CODE STATUS: DNR/DNI, discussed with patient and daughter at bedside Disposition: Medical surgical DVT prophylaxis: SCDs pending surgical evaluation History of Present Illness Primary Care Provider: Chela Olivarez DO Cat is a 58-year-old female with past medical history of cervical radiculopathy who presents to the ER after she had progressive low back pain worsening over several days and now limiting her ability to stand or walk. She has also had new incontinence with inability to tell when she is going to void in small amounts concerning for overflow. No saddle anesthesia. Case was reviewed with orthopedic spine prior to admission. Lumbar MRI is pending Cat is seen at the beside with her daughter. Thursday bent over to pick something up, after that progressive pain in the mid-low back, severe. No radiation down legs. No weakness. +urinary incontinence. No saddle anesthesia. No current or recent chest pain, dyspnea, SoB, fever, chills, n/v/, abdominal pain. No Flank pain. Back pain limits R hip flexion slightly, otherwise pt reports she feels strong with no strength change just limited somewhat by her pain. +tobacco use 0.5ppd x40 years. No etoh. Full Code. Takes tylenol and ibuprofen over the counter as needed, no other medical history and no prescription medications per pt. NKDA. No IVDU. +partial tooth crown. Hx cholecystectomy. Denies other surgical history. DNRDNI, confirmed with pt at bedside. Allergies Allergy/AdvReac Type Severity Reaction Status Date / Time No Known Allergies Allergy Unverified 01/29/21 08:54 Home Medications Medication Instructions Recorded Confirmed Type Tylenol See Rx Instructions .Route 07/22/23 07/22/23 History .COMPLEX PRN pain/fever ibuprofen See Rx Instructions .Route 07/22/23 07/22/23 History .COMPLEX PRN pain/fever Past Med/Surg History Medical History Cervical radiculopathy Common migraine without aura Depression with anxiety Migraine with typical aura Mixed hyperlipidemia Surgical History No history of previous surgery Family History Mother Unknown family medical history Social History Smoking Status: Current every day smoker Tobacco Type: Cigarettes Preferred Language: Cymraes Visual Impairment: No Limitations Hearing Ability: Normal Beliefs That Will Affect Care: None Current Living Situation: Family current occupational status: employed Feels Safe at Home: Yes Physical Exam Physical Exam: General: A&Ox3. NAD. Cooperative. HEENT: Atraumatic, normocephalic. PERLAA. Pulm: CTAB A&P. -wheezes, -rales, -rhonchi. Symmetrical chest rise. No increased work of breathing. No respiratory distress. Cardiac: RRR, -mrg. Radial pulses intact and symmetrical. Abdominal: Nontender, nondistended, soft. BS present. NO saddle anesthesia. RUE: 5/5 Shoulder internal rotation, external rotation, flexion, extension, abduction, adduction 5/5 Elbow flexion/extension, wrist flexi on/extension 5/5 insole channeler strength, finger flexion/extens ion, interosseus LUE: 5/5 Shoulder internal rotation, external rotation, flexion, extension, abduction, adduction 5/5 Elbow flexion/extension, wrist flexi on/extension 5/5 insole channeler strength, finger flexion/extens ion, interosseus RLE: 5/5 to hip flexion, ankle dorsiflexion/p lantarflexion LLE: 5/5 to hip flexion, ankle dorsiflexion/p lantarflexion REFLEXES: no clonus SENSORY: Normal to touch in upper and lower extremities without deficit or asymmetry Results & Data Results & Data Vital Signs (Past 12 Hours) Vital Signs Temp Pulse Resp BP Pulse Ox 07/22/23 14:10 59 L 21 96 07/22/23 14:01 66 24 97 07/22/23 14:01 156/83 H 07/22/23 14:00 99 07/22/23 13:50 97 07/22/23 13:40 94 07/22/23 13:30 99 07/22/23 13:20 68 14 97 07/22/23 13:10 73 17 96 07/22/23 13:03 71 07/22/23 13:00 74 99 07/22/23 13:00 144/73 H 07/22/23 12:59 69 19 97 07/22/23 10:52 36.6 C 71 18 165/77 H 98 PG Care Time/CCT Total # of Minutes Spent Total Time Spent with Patient: Total time spent is greater than 50% in coordination of care (as documented) at patient's floor/unit and/or counseling patient: Coding Level of Care Code 39104 INT INP/OBS CARE 2/55MIN Diagnoses Back pain M54.9 Tobacco abuse Z72.0
[2023-07-22] MEDS ORDERED: ACETAMINOPHEN 1,000 MG/100 ML VIAL IV PRN (20:00)
[2023-07-22] MEDS: GADOBUTROL 65ML VIAL IV ONE (20:09)
--- NOTE | 2023-07-22 21:25 | Magnetic Resonance Report ---
Exam(s): MRI L SPINE W/WO Contrast IV Amt: 7CC GADAVIST EXAM: MR Lumbar Spine Without and With Intravenous Contrast CLINICAL HISTORY: Reason for exam: Cauda equina, lumbar pain. TECHNIQUE: Magnetic resonance images of the lumbar spine without and with intravenous contrast in multiple planes. CONTRAST: Patient received 7CC GADAVIST of IV contrast COMPARISON: None. FINDINGS: Vertebrae: Unremarkable. Normal vertebral bodies with no acute fracture or focal bony lesion. Normal alignment of the lumbar vertebral bodies. Interspaces: Multilevel disc desiccation throughout the lumbar spine from L2-L5. Spinal cord: The spinal terminates at approximate L1-L2 with normal signal in the visualized portion. No abnormal enhancement. Soft tissues: Unremarkable. DISCS/SPINAL CANAL/NEURAL FORAMINA: L1-L2: Unremarkable. No disc disease, disc bulge or herniation. No stenosis. Mild hypertrophy of ligamentum flavum and bilateral facets. L2-L3: Mild to moderate diffuse posterior disc bulge, more significant over the left anterior thecal sac. Mild hypertrophy of ligamentum flavum/facet complex. Minimal AP diameter of thecal sac measures 7.2 mm. No stenosis. L3-L4: Mild diffuse posterior disc bulge. Mild to moderate hypertrophy of ligamentum flavum and facet complex. No stenosis. L4-L5: Minimal diffuse posterior disc bulge. Mild hypertrophy of ligamentum flavum and facet complex. No stenosis. L5-S1: Mild broad-based central disc bulge. No stenosis. IMPRESSION: Multilevel disc degenerative disease as described, more severe at L2-L3 otherwise no significant spinal stenosis or neuroforaminal encroachment. Electronically signed by: Saba Flores MD 07/22/23 21:24 PM
--- OUTSIDE RECORDS SUMMARY | 2023-07-22 22:44 | External Medical Summary | Summary of Care ---
Author Name Unknown Organization [facility] Address [address] [place] [address] Phone [phone] Care Team Providers Care Professional Driver Name Role Phone Chela Olivarez DO Primary Care Provider Un available Reason for Visit * Reason Comments PAP Encounter Details Date Type Department Care Team (Latest Contact Info) Description 03/25/2023 9:30 AM EST Office Visit Gynecology/Obstetric s SuarezHeidyharjinder Talamantes [address] [place] [phone] Cboy Keller PA-C [address] [place] [phone] Encounter for gynecological examination without abnormal finding*; Encounter for screening mammogram for malignant neoplasm of breast Allergies No known active allergiesdocumented as of this encounter (statuses as of 03/25/2023) Medications Medication Sig Dispensed Refills Start Date End Date Status Cholecalciferol (VITAMIN D) 2000 units Capsule Take 2,000 Units by mouth daily. 0 Active topiramate (TOPAMAX) 200 MG Tablet Take 1 Tablet by mouth in the morning and 1 Tablet before bedtime. 0 06/08/2019 Active ZyrTEC Allergy 10 MG Oral Capsule (Cetirizine HCl) Take 1 Capsule by mouth in the morning. 0 Active LORazepam 0.5 MG Oral Tablet (Ativan)Indications:An xiety and depression Take 1 Tab by mouth daily as needed for Anxiety. 20 Tab 1 12/07/2020 Active Vitamin C 500 MG Oral Tablet (Ascorbic Acid) Take 1 Tablet by mouth in the morning. 0 Active Vitamin B-12 1000 MCG Oral Tablet Take 1 Tablet by mouth in the morning. 0 Active documented as of this encounter (statuses as of 03/25/2023) Active Problems Problem Noted Date Diagnosed Date Tobacco abuse 06/17/2021 History of 2019 novel coronavirus disease (COVID -19) 06/17/2021 Overview: 2021. Moderate episode of recurrent major depressive d isorder 04/28/2018 Familial hypercholesterolemia 04/28/2018 Nocturnal enuresis 04/28/2018 Vitamin D deficiency 08/14/2017 History of breast biopsy 08/14/2017 Overview: both, June 2017 Fibrocystic changes of right breast 08/14/2017 Intractable chronic migraine without aura and without status migrainosus 08/14/2017 Insomnia 08/14/2017 CHAZ (generalized anxiety disorder) 08/14/2017 documented as of this encounter (statuses as of 03/25/2023) Resolved Problems Problem Noted Date Diagnosed Date Resolved Date Acute recurrent frontal sinusitis 07/20/2019 06/17/2021 Former smoker 08/14/2017 06/17/2021 documented as of this encounter (statuses as of 03/25/2023) Immunizations Name Administration Dates Next Due Seasonal Influenza, Split, I IV3, With Preserve, Inj 02/08/2018,02/19/2017,01/27/2013 TD - Tetanus/Diptheria (ADULT) 12/29/2012 TDAP (age 10 and older)(Boostrix) 06/02/2018 documented as of this encounter Social History Tobacco Use Types Packs/Day Years Used Date Smoking Tobacco: Every Day Cigarettes 1 38 Smokeless Tobacco: Never Comments:0.5ppd currently wa s up to 3ppd Alcohol Use Standard Drinks/Week Comments Not Currently 0 (1 standard drink = 0.6 oz pur e alcohol) PHQ-2 Answer Date Recorded PHQ Adult Total Score 0 12/07/2020 Hunger Vital Sign Answer Date Recorded Worried About Running Out of Food in the Last Ye ar Never true 12/07/2020 Ran Out of Food in the Last Year Never true 12/07/2020 Sex and Gender Information Value Date Recorded Sex Assigned at Not on file Gender Identity Not on file Sexual Orientation Not on file Job Start Date Occupation Industry Not on file Not on file Not on file documented as of this encounter Last Filed Vital Signs Vital Sign Reading Time Taken Comments Blood Pressure 132/76 03/25/2023 9:37 AM EST Pulse - - Temperature - - Respiratory Rate - - Oxygen Saturation - - Inhaled Oxygen Concentration - - Weight 65.3 kg (144 lb) 03/25/2023 9:37 AM EST Height 159 cm (5' 2.6") 03/25/2023 9:37 AM EST Body Mass Index 25.84 03/25/2023 9:37 AM EST documented in this encounter Progress Notes * Coby Keller PA-C - 03/25/2023 10:07 AM EST CC: Annual exam HPI: The patient is a 58 year old female here for her annual exam. Complaints: mole getting larger on top of genital area Patient is postmenopausal. Denies any postmenopausal bleeding. S/p ablation in 30's. Has not had vaginal bleeding since. Sexually active: no New partner: n/a Her control method: n/a postmenopausal. She denies any postcoital bleeding, pelvic pain or dyspareunia. She denies any vaginal discharge, urinary symptoms or changes in GI habits. Has bilateral hip pain, R > L. Plans to establish with PCP shortly. She has been doing her BSE occasionally. Denies breast concerns. Mammogram: has not had in several years. Reports missed appointment last year. Typically prefers [facility] clinic [facility]. Due for pap: 02/2022 NILM/-HPV Abnormal pap history: remote history, more than 20 years ago STD testing: declines Colon cancer screening: colonoscopy 2018, pt states was advised 10 year repeat Pt reports mole on right of mons pubis. Has been there for a long time. Reports borders and color unchanged. Borders always have had more irregular appears not smooth. It has slowly gotten bigger over the years. Pt states not sun exposed area. Medications: Current Outpatient Medications Medication Sig Dispense Refill ZyrTEC Allergy 10 MG Oral Capsule (Cetirizine HCl) Take 1 Capsule by mouth in the morning. LORazepam 0.5 MG Oral Tablet (Ativan) Take 1 Tab by mouth daily as needed for Anxiety. 20 Tab 1 Vitamin C 500 MG Oral Tablet (Ascorbic Acid) Take 1 Tablet by mouth in the morning. Vitamin B-12 1000 MCG Oral Tablet Take 1 Tablet by mouth in the morning. Cholecalciferol (VITAMIN D) 2000 units Capsule Take 2,000 Units by mouth daily. (Patient not taking: Reported on 03/25/2023) topiramate (TOPAMAX) 200 MG Tablet Take 1 Tablet by mouth in the morning and 1 Tablet before bedtime. (Patient not taking: Reported on 03/25/2023) No current facility-administered medications for this visit. Allergies: Review of patient's allergies indicates: No Known Allergies Patient Active Problem List Diagnosis Code Vitamin D deficiency E55.9 History of breast biopsy Z98.890 Fibrocystic changes of right breast N60.11 Intractable chronic migraine without aura and without status migrainosus G43.719 Insomnia G47.00 CHAZ (generalized anxiety disorder) F41.1 Moderate episode of recurrent major depressive disorder (HCC) F33.1 Familial hypercholesterolemia E78.01 Nocturnal enuresis N39.44 Tobacco abuse Z72.0 History of 2019 novel coronavirus disease (COVID-19) Z86.16 Past Medical History: Diagnosis Date Anxiety Anxiety and depression 08/14/2017 Depression Fibrocystic changes of right breast 08/14/2017 Former smoker 08/14/2017 History of breast biopsy 08/14/2017 both, June 2017 Hypothyroid Insomnia 08/14/2017 Intractable chronic migraine without aura and without status migrainosus 08/14/2017 Osteoarthritis Vitamin D deficiency 08/14/2017 OB History Para Term AB Living 3 3 3 3 SAB IAB Ectopic Multiple Live Births 3 # Outcome Date GA Lbr Issa/2nd Weight Sex Delivery Anes PTL Lv 3 Term 2 Term 1 Term Obstetric Comments x 3 Past Surgical History: Procedure Laterality Date DENTAL SURGERY PROCEDURE NEC ENDOMETRIAL ABLATION EDU. REMOVE GALLBLADDER US GUIDED BREAST BIOPSY LEFT US GUIDED BREAST BIOPSY RIGHT Family History Problem Relation Age of Onset Lung cancer Mother right lobectomy Review of Systems: Constitutional ROS: No change in weight, No weakness, No fatigue, and No fevers, sweats, or chills Neck ROS: No lumps or masses, No swollen glands, No recent swelling in thyroid area, and No significant pain in neck Pulmonary ROS: No cough, sputum, or hemoptysis, No wheezing, and No shortness of breath Cardiovascular ROS: No chest pain, No edema, No palpitations, and No syncope Gastrointestinal ROS: No abdominal pain, No change in bowel habits, No significant heartburn, No significant change in appetite, No nausea, vomiting, diarrhea, or constipation, and No blood in stoolsor black tarry stools Breast ROS: No new breast lumps or masses, No severe breast pain, No nipple discharge, and No recent change in shape/color Genito-Urinary Female ROS: No STDs, No dysuria, No frequency, No incontinence, No irregular menstruation, No urgency, and No vaginal discharge Psychiatric ROS: No depression and No anxiety OBJECTIVE: BP 132/76 | Ht 1.59 m (5' 2.6") | Wt 65.3 kg (144 lb) | BMI 25.84 kg/m | BSA 1.7 m General: awake, alert, and oriented x 3, normal affect, no acute distress Skin: color, texture normal Head: normocephalic, atraumatic Neck: supple, thyroid normal size, non-tender Cardiac: regular rate and rhythm Lungs: clear to auscultation Abdomen: soft, non-tender, non-distended Extremities: no edema Neuro: no focal motor/sensory deficits Breasts: no skin changes, no nipple retraction or dimpling, no nipple discharge or bleeding, no axillary or supraclavicular lymphadenopathy, normal to palpation without dominant masses External Genitalia/Vulva: anatomy is normal, no significant redness of labia, no discharge on vulvar tissues, ulcers are absent, no condylomatous lesions, two nevus appear lesions on right aspect of vulva. The more cephalic lesion larger approx 1 cm normal coloration, somewhat irregular appearing borders pt notes unchanged from what they have always been Vagina: vaginal tissues are not inflamed, normal color and texture, no significant discharge present Cervix: without lesions, no cervicitis, no discharge from os, no cervical motion tenderness. Uterus: normal size, mobile, non-tender. Adnexa: non-tender bilaterally, no palpable pelvic masses Advertising Dispatch Clerks Supervisor Documentation Provider requested assistant vice president. Name of assistant vice president: SIMI Chiang ASSESSMENT/PLAN: Encounter for gynecological examination without abnormal finding (Primary) Encounter for screening mammogram for malignant neoplasm of breast - MAMMOGRAM SCREENING POPEYE BILATERAL; Future; Expected date: 03/25/2023 Counseled patient on ACOG recommendations regarding pap smears. Recommended pap smear every 5 yearsas long as pap smears are normal. Pap smears should be more frequent if abnormal pap smears occur. Counseled patient that she should return to the office for annual exam, including pelvic exam every year. Pap smear UTD. Counseled on self breast awareness. Notify office right away if any concerns. Recommended annual mammograms unless indicates sooner. Colonoscopy UTD. Reviewed ABCDE of skin lesions/moles. Reviewed role of biopsy for pathology. RTO in 1 year for annual exam appointment or sooner if she has any concerns. Coby Keller PA-C PCP: CHELA OLIVAREZ documented in this encounter Nursing Notes * Mariia Bo LPN - 03/25/2023 9:37 AM EST Patient identified Cat Chandler by name and date of . Patient here for yearly exam. Complaints: none Last pap: 02/2022 neg/neg Last Mammogram: a few years Last Dexa: na Last Colonoscopy: 2018 Type of Contraception: menopause Pt here for chlamydia screen. no My [facility] is a way you can talk to your provider online through e-mail. May I activate it for you? ALREADY ACTIVE Do you need any refills while you are here? no Mariia Bowers LPN 03/25/2023 9:37 AM documented in this encounter Plan of Treatment Upcoming Encounters Date Type Department Care Team (Late st Contact Info) Description 05/22/2023 9:30 AM EST Office Visit Gynecology/Obstetrics [facility] [address] [place] [address] Coby Keller PA-C [address] [place] [address] Scheduled Orders Name Type Priority Associated Diagnoses Orde r Schedule MAMMOGRAM SCREENING POPEYE BILATERAL Medical Imaging Routine Encounter for screening mammogram for malignant neoplasm of breast Expected: 03/25/2023 (Approximate), Expires: 04/24/2024 Health Maintenance Due Date Last Done Comments Hepatitis B (1 of 3 - 3-dose series) 1965 COVID-19 Vaccine (#1) 1965 Pneumococcal Vaccine: Pediatrics (0 to 5 Years) and At-Risk Patients (6 to 64 Years) (1 - PCV) 1971 HPV/Co-Test 1995 Cologuard 2010 Fecal Occult Blood Test 2010 Sigmoidoscopy 2010 Zoster Vaccines (1 of 2) 2015 Mammogram 07/06/2019 07/05/2018 Depression Screening 12/07/2021 12/07/2020 Influenza Vaccine (FLU shot) (#1) 2022 02/08/2018, 02/19/2017, 01/27/2013 Cervical Cancer Screening 02/27/2025 Pap Smear 02/27/2025 02/27/2022, 10/07/2017, 10/07/2017 Lipid Panel 12/07/2025 12/07/2020, 08/05/2018, 03/25/2018 Colonoscopy 11/10/2027 11/09/2017 Colorectal Cancer Screening 11/10/2027 DTaP,Tdap,and Td Vaccines (2 - Td or Tdap) 06/02/2028 06/02/2018, 12/29/2012 Hepatitis C Screening Completed 04/23/2018 LUNG CANCER SCREENING - USE SMARTSET 34365 Completed 12/25/2020 HIV Screening Completed 02/21/2022, 01/02/2022, 11/21/2021 GARDASIL-HPV IMMUNIZATION SERIES Aged Out No longer eligible b ased on patient's age to complete this topic MENINGOCOCCAL (MENACTRA/MENVEO) Aged Out No longer eligible b ased on patient's age to complete this topic documented as of this encounter Medical Devices Not on filedocumented as of this encounter Visit Diagnoses Diagnosis Encounter for gynecological examination without abnormal finding- Primary Routine gynecological examination Encounter for screening mammogram for malignant neoplasm of breast Other screening mammogram documented in this encounter Care Teams Professional Driver Relationship Specialty Start Date End Date Chela Olivarez DO PCP - General Family Medicine 08/14/17 documented as of this encounter
[2023-07-23 07:44] LABS: Basophils # (auto) 0.05 K/uL (0.00-0.20); Basophils % (auto) 0.6 %; Eosinophils # (auto) 0.16 K/uL (0.00-0.50); Eosinophils % (auto) 1.9 %; Hematocrit (blood only) 41.8 % (37.0-47.0); Hemoglobin 13.9 g/dl (12.0-16.0); Immature Granulocytes # (auto) 0.02 K/uL (0.01-0.20); Immature Granulocytes % (auto) 0.2 %; Lymphocytes % (auto) 29.7 %; Mean Corpuscular Hemoglobin 31.2 pg (25.0-34.0); Mean Corpuscular Hgb Conc 33.3 g/dL (32.0-36.0); Mean Corpuscular Volume 93.7 fL (80.0-100.0); Mean Platelet Volume 11.2 fL (9.4-12.4); Monocytes # (auto) 0.63 K/uL (0.11-0.59); Monocytes % (auto) 7.5 %; Neutrophils # (auto) 5.07 K/uL (1.40-6.50); Neutrophils % (auto) 60.1 %; Platelet Count 235 K/uL (130-400); RDW Coefficient of Variation 12.2 % (11.5-14.5); RDW Standard Deviation 42.3 fL (36.4-46.3); Red Blood Count 4.46 M/uL (4.20-5.40); White Blood Count 8.43 K/ul (4.8-10.8)
[2023-07-23 08:19] LABS: BUN Creatinine Ratio 21.5 (10-20); Calcium 8.8 mg/dl (8.6-10.3); Creatinine Clr Calc Pharmacy 71.1 ml/min; Est GFR (African American) 95.6 ml/min; Est GFR (Non-African American) 82.5 ml/min
--- NOTE | 2023-07-23 12:10 | Orthopedic Consultation ---
Date of Consultation July 23, 2023 Assessment & Plan (1) Low back pain: MRI lumbar spine available for review demonstrates evidence of multilevel facet hypertrophy consistent with arthritis however there is no evidence of gross neural compression to account for her incontinence or back pain. Recommend follow-up with interventional pain management for possible facet injections. History of Present Illness Reason for Consultation: Back pain Attending Physician: Jacqui Renee MD History of Present Illness This is a 50-year-old female who presents the emergency room yesterday with severe back pain. 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 She had worsening symptoms after bending over to tack picker a ball. She denies any radicular component to her pain. She does have a history of cervical radiculopathy managed by [facility] pain management group. Allergies Allergy/AdvReac Type Severity Reaction Status Date / Time No Known Allergies Allergy Unverified 01/29/21 08:54 Home Medications Medication Instructions Recorded Confirmed Type Tylenol See Rx Instructions .Route 07/22/23 07/22/23 History .COMPLEX PRN pain/fever ibuprofen See Rx Instructions .Route 07/22/23 07/22/23 History .COMPLEX PRN pain/fever Patient History Medical History (Updated 07/22/23 @ 18:38 by Jovana Aranda MD) Cervical radiculopathy Common migraine without aura Depression with anxiety Migraine with typical aura Mixed hyperlipidemia Surgical History No history of previous surgery Family History Mother Unknown family medical history Social History Smoking Status: Current every day smoker Tobacco Type: Cigarettes Cigarettes Per Day: 10; Hx Alcohol Use: No Hx Substance Use: No Preferred Language: Irish Communication Ability: Effective Visual Impairment: No Limitations Hearing Ability: Normal Builder'S Labourer Required: No Beliefs That Will Affect Care: None Current Living Situation: Spouse current occupational status: employed Other Information That Helps Us Care for You: No Feels Safe at Home: Yes Safety Concerns: Feels Safe At This Time Assistive Devices: None Physical Exam Physical Exam: On exam she is seen but bed. She is comfortable. She is eating Brush's. She has good strength testing lower extremities. She is not acute distress. Results & Data Vital Signs (Past 12 Hours) Vital Signs Temp Pulse Resp BP Pulse Ox O2 Del Method 07/23/23 10:31 Room Air 07/23/23 07:59 36.6 C 59 L 18 160/77 H 95 Room Air
--- NOTE | 2023-07-23 13:05 | Hospitalist Progress Note ---
Date of Service July 23, 2023 Assessment & Plan (1) Back pain: Plan: Patient presents with 3 days of severe back pain which began slowly and progressive after bending over to miner pick a ball. Patient has had new urinary incontinence and an inability to tell when she is voiding. Given severe back pain and new urinary incontinence concerning for potential cauda equina. No lower extremity weakness, no numbness/tingling, no saddle anesthesia on admission - Bladder scanned at time of admit, no retention noted -MRI shows multilevel disc degeneration around L2-L3 but no significant spinal stenosis or neuroforaminal encroachment. -Orthospine on consult, recommend pain management with possible outpatient injections -Continue pain management with acetaminophen and ibuprofen, patient does not take narcotics according to her (2) Tobacco abuse: Plan: 0.5 pack/day 40-year history Cessation recommended, patch offered patient declines NRT while in the hospital Plan Diet: Regular diet CODE STATUS: DNR/DNI, discussed with patient and daughter at bedside Disposition: Hopefully discharge soon to outpatient pain management. DVT prophylaxis: SCDs Admission and Anticipated Discharge Date Admission Date: July 22, 2023 Subjective Patient seen and examined, daughter by the bedside. Review of Systems Review of Systems: All systems reviewed are negative, apart from the ones contained in the history. Physical Exam Physical Exam: The patient is awake, alert and oriented 3, well developed and well nourished, normocephalic and atraumatic, lying in bed and in no acute distress. HEENT--PERRL, EOMI, mucous membranes and oropharynx mildly dry Neck--supple. No JVD. No bruits. Thyroid normal, trachea midline, no adenopathy. Heart--normal S1 and S2. No murmurs, rubs or gallops. Lungs--clear bilaterally, no respiratory distress, no accessory muscle use. Abdomen--normal bowel sounds and soft. Extremities--no cyanosis or clubbing. No edema. Dermatologic--normal skin turgor, normal color, no abnormal lymph nodes, no r nikunj. Neurologic--cranial nerves II through XII grossly intact. Rheumatologic--normal range of motion. Psychiatric--normal affect. Results & Data Results & Data Vital Signs (Past 12 Hours) Vital Signs Temp Pulse Resp BP Pulse Ox O2 Del Method 07/23/23 10:31 Room Air 07/23/23 07:59 97.9 F 59 L 18 160/77 H 95 Room Air PG Care Time/CCT Total # of Minutes Spent Total Time Spent with Patient: Total time spent is greater than 50% in coordination of care (as documented) at patient's floor/unit and/or counseling patient: Coding Level of Care Code 70675 SUB INP/OBS CARE 2/35MIN Diagnoses Back pain M54.9 Tobacco abuse Z72.0 Time Spent (min) 35
[2023-07-23] MEDS: IBUPROFEN 800 MG TAB PO SCH (17:19)
[2023-07-24] MEDS: ACETAMINOPHEN 500 MG TAB PO PRN (06:20)
[2023-07-24 07:20] LABS: Basophils # (auto) 0.04 K/uL (0.00-0.20); Basophils % (auto) 0.5 %; Eosinophils # (auto) 0.16 K/uL (0.00-0.50); Eosinophils % (auto) 1.9 %; Hematocrit (blood only) 41.1 % (37.0-47.0); Hemoglobin 13.8 g/dl (12.0-16.0); Immature Granulocytes # (auto) 0.02 K/uL (0.01-0.20); Immature Granulocytes % (auto) 0.2 %; Lymphocytes # (auto) 2.67 K/uL (1.20-3.40); Lymphocytes % (auto) 32.3 %; Mean Corpuscular Hemoglobin 30.9 pg (25.0-34.0); Mean Corpuscular Hgb Conc 33.6 g/dL (32.0-36.0); Mean Corpuscular Volume 92.2 fL (80.0-100.0); Mean Platelet Volume 11.2 fL (9.4-12.4); Monocytes # (auto) 0.66 K/uL (0.11-0.59); Neutrophils # (auto) 4.72 K/uL (1.40-6.50); Neutrophils % (auto) 57.1 %; Platelet Count 219 K/uL (130-400); RDW Coefficient of Variation 11.9 % (11.5-14.5); Red Blood Count 4.46 M/uL (4.20-5.40); White Blood Count 8.27 K/ul (4.8-10.8)
[2023-07-24 07:39] LABS: BUN Creatinine Ratio 23.5 (10-20); Creatinine Clr Calc Pharmacy 69.4 ml/min; Est GFR (African American) 92.8 ml/min; Est GFR (Non-African American) 80.1 ml/min; Potassium 4.1 mmol/L (3.5-5.1)
--- NOTE | 2023-07-24 12:17 | Discharge Summary ---
Date of Service July 24, 2023 Admission HPI Per Admitting Provider Cat is a 58-year-old female with past medical history of cervical radiculopathy who presents to the ER after she had progressive low back pain worsening over several days and now limiting her ability to stand or walk. She has also had new incontinence with inability to tell when she is going to void in small amounts concerning for overflow. No saddle anesthesia. Case was reviewed with orthopedic spine prior to admission. Lumbar MRI is pending Cat is seen at the beside with her daughter. Thursday bent over to pick something up, after that progressive pain in the mid-low back, severe. No radiation down legs. No weakness. +urinary incontinence. No saddle anesthesia. No current or recent chest pain, dyspnea, SoB, fever, chills, n/v/, abdominal pain. No Flank pain. Back pain limits R hip flexion slightly, otherwise pt reports she feels strong with no strength change just limited somewhat by her pain. +tobacco use 0.5ppd x40 years. No etoh. Full Code. Takes tylenol and ibuprofen over the counter as needed, no other medical history and no prescription medications per pt. NKDA. No IVDU. +partial tooth crown. Hx cholecystectomy. Denies other surgical history. DNRDNI, confirmed with pt at bedside. Principal Diagnosis Back pain Discharge Exam The patient is awake, alert and oriented 3, well developed and well nourished, normocephalic and atraumatic, lying in bed and in no acute distress. HEENT--PERRL, EOMI, mucous membranes and oropharynx mildly dry Neck--supple. No JVD. No bruits. Thyroid normal, trachea midline, no adenopathy. Heart--normal S1 and S2. No murmurs, rubs or gallops. Lungs--clear bilaterally, no respiratory distress, no accessory muscle use. Abdomen--normal bowel sounds and soft. Extremities--no cyanosis or clubbing. No edema. Dermatologic--normal skin turgor, normal color, no abnormal lymph nodes, no rash. Neurologic--cranial nerves II through XII grossly intact. Rheumatologic--normal range of motion. Psychiatric--normal affect. Discharge Data Allergies Allergy/AdvReac Type Severity Reaction Status Date / Time No Known Allergies Allergy Unverified 01/29/21 08:54 Consultations 07/22/23 15:20 ED Decision to Admit Stat 07/22/23 18:45 Consult Orthopedic Spine Surgery Routine Ordered Studies 07/22/23 12:23 CTA abd pelvis wo/w con [CT angio abd pelvis wo/w con] Stat 07/22/23 14:24 MRI Lumbar Spine [MR lumbar spine wo/w con] Stat Hospital Course (1) Back pain: Patient presents with 3 days of severe back pain which began slowly and progressive after bending over to peanut picker a ball. Patient has had new urinary incontinence and an inability to tell when she is voiding. Given severe back pain and new urinary incontinence concerning for potential cauda equina. No lower extremity weakness, no numbness/tingling, no saddle anesthesia on admission - Bladder scanned at time of admit, no retention noted -MRI shows multilevel disc degeneration around L2-L3 but no significant spinal stenosis or neuroforaminal encroachment. -Orthospine on consult, recommend pain management with possible outpatient injections -Continue pain management with acetaminophen and ibuprofen, patient does not take narcotics according to her (2) Tobacco abuse: 0.5 pack/day 40-year history Cessation recommended, patch offered patient declines NRT while in the hospital Plan Diet: Regular diet CODE STATUS: DNR/DNI, discussed with patient and daughter at bedside Disposition: Hopefully discharge soon to outpatient pain management. DVT prophylaxis: SCDs Total Time Total Time Spent Total Time Spent (In Minutes): 35 Discharge Plan Discharge Items Patient Disposition: Home - Self-Care Reason For Visit: BACK PAIN, INCONTINENCE Discharge Diagnosis: Pain Activity: Resume your previous activity Non-emergency contact: Primary Care Provider Call non-emergency contact if: you have any medication questions Follow-up/Referrals: Chela Olivarez DO [Primary Care Provider] - 08/07/23 9:20 am Diet: Regular Addtl Attending Provider Instructions: Please make appointment to follow-up with your pain specialist Pending Studies at Discharge: No Stand-Alone Forms: My [employer], Smoking Cessation Medications and DC Order Prescriptions: Continued Tylenol See Rx Instructions .ROUTE .COMPLEX PRN (Reason: pain/fever) Rx Instructions: as directed, otc ibuprofen See Rx Instructions .ROUTE .COMPLEX PRN (Reason: pain/fever) Rx Instructions: as directed, otc Discharge Orders: Discharge Order (Routine); Ordered 07/24/23 Ordered By: Jacqui Renee Admission Data Admit Date/Time: 07/22/23 15:52 Attending Provider: Jacqui Renee Admit Provider: Florencio Collier Primary Care Provider: Chela Olivarez Other Providers: Florencio Collier; Dillon Harris Other Interventions: Discharge Summary Assessment (RN) Last Done: 07/24/23 11:36 Coding Level of Care Code 98215 INP/OBS DISCH >30 MIN Diagnoses Back pain M54.9 Tobacco abuse Z72.0 Time Spent (min) 35
== END 2023-07-24 11:56 | disposition home or self-care (01) | DRG 74 ==
LOC: ED 10:44 → 3W 15:52 → SUATTDRO 15:52 → 3W 17:41